=== PATIENT | female | born 1955 | race Caucasian/White ===

== ENCOUNTER 2017-10-01 19:38 | Emergency (ER) | payer BC ==
--- NOTE | 2017-10-01 21:22 | RAD ---
Indication: Left hip pain. 2 views of left femur demonstrates no fracture. Degenerative changes of the left hip are noted. No fracture is noted. IMPRESSION: No fracture of the left femur is noted.
--- NOTE | 2017-10-01 21:24 | RAD ---
Indication: Left shoulder pain. 4 views of left shoulder demonstrates no fracture. No other bone or joint abnormality is noted. IMPRESSION: Unremarkable left shoulder.
--- NOTE | 2017-10-01 21:25 | RAD ---
Indication: Left hip pain. Single view of the pelvis demonstrates pelvic ring to be intact. Joint spaces all well-preserved. No fracture is noted. IMPRESSION: NO FRACTURE OF THE LEFT HIP OR PELVIS IS NOTED.
--- NOTE | 2017-10-01 21:37 | ED ---
Adult Trauma - HPI Summary HPI Summary: 61-year-old female presents with left hip pain shoulder pain after fall today. States she tumbled out of bed and landed on the left side. She is able to ambulate. She denies any chest pain or SOB. She states able to ambulate but has left hip pain when does. She denies any weakness. She states pain is greatest when she tries to lift her arm overhead. She denies any numbness or tingling. She is right handed. She has been taking Tylenol for pain. 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 - History of Current Complaint Chief Complaint: EDHipPelvisInjury Stated Complaint: FALL/LT SHOULDER INJURY Time Seen by Provider: 10/01/17 20:31 Pain Intensity: 8 - Allergy/Home Medications Allergies/Adverse Reactions: Allergies Allergy/AdvReac Type Severity Reaction Status Date / Time No Known Allergies Allergy Verified 10/01/17 19:45 PMH/Surg Hx/FS Hx/Imm Hx Endocrine/Hematology History: Denies: Hx Anticoagulant Therapy Cardiovascular History: Reports: Hx Hypertension - Cancer History Hx Chemotherapy: Yes Hx Radiation Therapy: Yes Infectious Disease History: No Infectious Disease History: Denies: Traveled Outside the [place] in Last 30 Days - Family History Known Family History: Positive: Hypertension - Social History Alcohol Use: Occasionally Substance Use Type: Reports: None Smoking Status (MU): Former Smoker Review of Systems Negative: Fever Negative: Chest Pain Negative: Shortness Of Breath Positive: Myalgia - left hip and shoulder All Other Systems Reviewed And Are Negative: Yes Physical Exam Triage Information Reviewed: Yes Vital Signs On Initial Exam: Initial Vitals Temp Pulse Resp BP Pulse Ox 97.7 F 66 16 175/85 100 10/01/17 19:45 10/01/17 19:45 10/01/17 19:45 10/01/17 19:45 10/01/17 19:45 Vital Signs Reviewed: Yes Appearance: Positive: Well-Appearing Skin: Positive: Warm, Dry Head/Face: Positive: Normal Head/Face Inspection Eyes: Positive: Normal, Conjunctiva Clear Respiratory/Lung Sounds: Positive: Clear to Auscultation, Breath Sounds Present Cardiovascular: Positive: Normal, RRR Musculoskeletal: Positive: Strength/ROM Intact - left shoulder with pain, left hip, Other - shoulder tenderness to palpation, good pulses, sensation grossly intact, Neurological: Positive: Normal Psychiatric: Positive: Normal Diagnostics - Vital Signs Vital Signs Temp Pulse Resp BP Pulse Ox 10/01/17 19:45 97.7 F 66 16 175/85 100 - Laboratory Lab Statement: Any lab studies that have been ordered have been reviewed, and results considered in the medical decision making process. - Radiology hip Xray Interpretation: No Acute Changes Radiology Interpretation Completed By: Radiologist shoulder Xray Interpretation: No Acute Changes Radiology Interpretation Completed By: Radiologist Adult Trauma Course/Dx - Course Course Of Treatment: 61-year-old female presents with left hip pain shoulder pain after fall today. States she tumbled out of bed and landed on the left side. She is able to ambulate. She denies any chest pain or SOB. She states able to ambulate but has left hip pain when does. She denies any weakness. She states pain is greatest when she tries to lift her arm overhead. She denies any numbness or tingling. She is right handed. She has been taking Tylenol for pain. 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 on exam has full ROM of shoulder with pain left. neurovascular intact. has full ROM shoulder. xray shoulder and hip neg. will treat with RICE. patient understand and agrees with plan. - Diagnoses Differential Diagnosis/HQI/PQRI: Positive: Contusion(s), Fracture, Sprain, Strain Provider Diagnoses: Fall, Left shoulder pain, Left hip pain Discharge - Discharge Plan Condition: Good Disposition: HOME Patient Education Materials: Shoulder Pain (ED) Forms: *Work Release Referrals: Tiffany De La Paz MD [Primary Care Provider] - Additional Instructions: Take Tylenol every 6 hours as needed for pain Apply ice, rest, elevate Follow up with primary care physician within 5 days Return to ED if develop any new or worsening symptoms
[2017-10-01 21:55] VITALS: BP 124/72
== END 2017-10-01 21:55 | disposition home or self-care (01) ==
LOC: ED 19:38
DX: M25.552 Pain in left hip (principal); Z87.891 Personal history of nicotine dependence; Z86.79 Personal history of other diseases of the circulatory system
CPT/HCPCS: 72170; 99282

== ENCOUNTER 2018-01-03 16:14 | Emergency (ER) | payer BC ==
[2018-01-03 17:07] VITALS: BP 165/79
--- NOTE | 2018-01-03 17:13 | ED ---
Upper Extremity Pain - HPI Summary HPI Summary: Patient is a 62-year-old female who presents emergency department for left elbow pain. 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 She does not recall any specific injuries or falls. Pain radiates into forearm and hand with occasional paresthesias. She does note she has a history of neck pain and occasionally gets radicular arm pain but states this pain is different. Symptoms are mild in severity. She has been taking anti-inflammatories and icing arm with mild relief. - History of Current Complaint Chief Complaint: EDExtremityUpper Stated Complaint: LEFT ARM INJURY Time Seen by Provider: 01/03/18 16:36 Hx Obtained From: Patient - Allergies/Home Medications Allergies/Adverse Reactions: Allergies Allergy/AdvReac Type Severity Reaction Status Date / Time No Known Allergies Allergy Verified 01/03/18 16:20 PMH/Surg Hx/FS Hx/Imm Hx Previously Healthy: Yes Endocrine/Hematology History: Denies: Hx Anticoagulant Therapy Cardiovascular History: Reports: Hx Hypertension - Cancer History Hx Chemotherapy: Yes Hx Radiation Therapy: Yes Infectious Disease History: No Infectious Disease History: Denies: Traveled Outside the [place] in Last 30 Days - Family History Known Family History: Positive: Hypertension - Social History Occupation: Employed Full-time Lives: With Family Alcohol Use: Occasionally Substance Use Type: Reports: None Smoking Status (MU): Former Smoker Review of Systems Positive: Other - left elbow pain Positive: Paresthesia. Negative: Weakness, Numbness All Other Systems Reviewed And Are Negative: Yes Physical Exam Triage Information Reviewed: Yes Vital Signs On Initial Exam: Initial Vitals Temp Pulse Resp BP Pulse Ox 96.8 F 66 16 163/78 98 01/03/18 16:16 01/03/18 16:16 01/03/18 16:16 01/03/18 16:16 01/03/18 16:16 Vital Signs Reviewed: Yes Appearance: Positive: Well-Appearing - Patient sitting in bed in no acute distress. present. Head/Face: Positive: Normal Head/Face Inspection Eyes: Positive: Normal Neck: Positive: Supple Musculoskeletal: Positive: Other - 5 out of 5 strength in left upper extremity. Good palpable radial pulse. Mild edema and pain noted over the lateral epicondyle. Positive Wade test. No erythema or wounds noted to extremity. Neurological: Positive: Normal, CN Intact II-III Psychiatric: Positive: Normal Diagnostics - Vital Signs Vital Signs Temp Pulse Resp BP Pulse Ox 01/03/18 17:05 97 F 58 18 165/79 99 01/03/18 16:16 96.8 F 66 16 163/78 98 - Laboratory Lab Statement: Any lab studies that have been ordered have been reviewed, and results considered in the medical decision making process. Course/Dx - Course Course Of Treatment: Patient presenting with pain to left low after repetitive use. No injuries. Exam and history is consistent with lateral epicondylitis. Patient notes she's been taking anti-inflammatories with minimal relief. Will try a course of prednisone. Recommend using and armband [id number] for support. To ice and elevate. Work excuse given. To avoid overuse. To follow- up with family doctor. Patient understands and agrees with plan. - Diagnoses Differential Diagnosis/HQI/PQRI: Positive: Arthritis, Bursitis, Contusion, Strain, Sprain Provider Diagnoses: Lateral epicondylitis Discharge - Sign-Out/Discharge Documenting (check all that apply): Discharge/Admit/Transfer - Discharge Plan Condition: Good Disposition: HOME Prescriptions: predniSONE TAB* [Deltasone TAB*] 40 mg PO DAILY 5 Days #5 tab Patient Education Materials: Tennis Elbow (ED) Forms: *Work Release Referrals: Tiffany De La Paz MD [Primary Care Provider] - Additional Instructions: Schedule a follow up appointment with your PCP Take prednisone as directed Ice and elevate elbow Get an over the counter elbow brace such as a- counter force brace Avoid overuse Return to ER if symptoms change or worsen - Billing Disposition and Condition Condition: GOOD Disposition: HOME
== END 2018-01-03 17:04 | disposition home or self-care (01) ==
LOC: ED 16:14
DX: M77.12 Lateral epicondylitis, left elbow (principal)
CPT/HCPCS: 99281

== ENCOUNTER 2018-04-23 18:38 | Emergency (ER) | payer BC, OTHER ==
[2018-04-23 18:42] VITALS: BP 152/87
--- NOTE | 2018-04-23 19:42 | ED ---
Lower Extremity - HPI Summary HPI Summary: 62-year-old female presents with left ankle pain today. States she was walking and twisted her left ankle. States she's been able to ambulate since but it has been gradually getting worse. Denies any previous fracture to the area. No numbness or tingling. She has pain to lateral aspect of her ankle. Denies any knee pain. Denies any other injury. She walks around without any assistance. - History of Current Complaint Chief Complaint: EDExtremityLower Stated Complaint: LT ANKLE INJURY Time Seen by Provider: 04/23/18 18:55 Pain Intensity: 6 - Allergies/Home Medications Allergies/Adverse Reactions: Allergies Allergy/AdvReac Type Severity Reaction Status Date / Time latex Allergy Rash Verified 04/23/18 18:42 PMH/Surg Hx/FS Hx/Imm Hx Endocrine/Hematology History: Denies: Hx Anticoagulant Therapy, Hx Diabetes Cardiovascular History: Reports: Hx Hypertension Denies: Hx Pacemaker/ICD Sensory History: Denies: Hx Hearing Aid Psychiatric History: Denies: Hx Panic Disorder - Cancer History Cancer Type, 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 LT BREAST LUMPECTOMY 1999,. APPENDECTOMY,. C SECTIONS X3, Infectious Disease History: No Infectious Disease History: Denies: Traveled Outside the [place] in Last 30 Days - Family History Known Family History: Positive: Hypertension - Social History Alcohol Use: Occasionally Substance Use Type: Reports: None Smoking Status (MU): Former Smoker Review of Systems Negative: Fever Negative: Chest Pain Negative: Shortness Of Breath Positive: Myalgia - left ankle All Other Systems Reviewed And Are Negative: Yes Physical Exam Triage Information Reviewed: Yes Vital Signs On Initial Exam: Initial Vitals Temp Pulse Resp BP Pulse Ox 98.2 F 70 15 152/87 98 04/23/18 18:40 04/23/18 18:40 04/23/18 18:40 04/23/18 18:40 04/23/18 18:40 Vital Signs Reviewed: Yes Appearance: Positive: Well-Appearing Skin: Positive: Warm, Dry Head/Face: Positive: Normal Head/Face Inspection Eyes: Positive: Normal, Conjunctiva Clear ENT: Positive: Pharynx normal Respiratory/Lung Sounds: Positive: Clear to Auscultation, Breath Sounds Present Cardiovascular: Positive: Normal, RRR Musculoskeletal: Positive: Strength/ROM Intact - left ankle with pain, Edema Left - lateral malleolus, Other - Tenderness over lateral ankle left, good pulses, capillary refill 2 seconds, sensation grossly intact Neurological: Positive: Normal Psychiatric: Positive: Normal Diagnostics - Vital Signs Vital Signs Temp Pulse Resp BP Pulse Ox 04/23/18 18:40 98.2 F 70 15 152/87 98 - Laboratory Lab Statement: Any lab studies that have been ordered have been reviewed, and results considered in the medical decision making process. - Radiology ankle Xray Interpretation: No Acute Changes Radiology Interpretation Completed By: ED Physician Lower Extremity Course/Dx - Course Course Of Treatment: 62-year-old female presents with left ankle pain today. States she was walking and twisted her left ankle. States she's been able to ambulate since but it has been gradually getting worse. Denies any previous fracture to the area. No numbness or tingling. She has pain to lateral aspect of her ankle. Denies any knee pain. Denies any other injury. She walks around without any assistance. On exam has tenderness lateral left ankle malleolus. neurovascular intact. X-ray read by me as normal. We'll place a cam Walking boot. Told to practice rice. Patient understands agrees with plan. - Diagnoses Differential Diagnosis/HQI/PQRI: Positive: Fracture (Closed), Sprain, Strain Provider Diagnoses: Left ankle injury Discharge - Sign-Out/Discharge Documenting (check all that apply): Patient Departure - Discharge Plan Condition: Good Disposition: HOME Patient Education Materials: Ankle Sprain (ED) Referrals: Tiffany De La Paz MD [Primary Care Provider] - Additional Instructions: Stay off ankle as much as possible Ice, elevate, use boot as needed tyenlol every 6 hours for pain Follow up with primary if no improvement Return to ED if develop or any new or worsening symptoms - Billing Disposition and Condition Condition: GOOD Disposition: Home
--- NOTE | 2018-04-24 07:52 | RAD ---
Indication: Left ankle pain. 3 views of left ankle demonstrate soft tissue swelling laterally. Ankle mortise is intact. There is no fracture or dislocation. IMPRESSION: Left soft tissue swelling laterally without fracture. R0
== END 2018-04-23 20:45 | disposition home or self-care (01) ==
LOC: ED 18:38
DX: S99.912A Unspecified injury of left ankle, initial encounter (principal); X50.9XXA Other and unspecified overexertion or strenuous movements or postures, initial encounter; Y92.9 Unspecified place or not applicable; Z87.891 Personal history of nicotine dependence
CPT/HCPCS: 99282